=== PATIENT | male | born 1960 | race Caucasian/White ===

== ENCOUNTER 2017-12-28 11:43 | Outpatient (CLI) | payer MEDICAID ==
[~2017-12-28] VITALS: Ht 172.7 cm; Wt 141.5 kg
[2017-12-28 11:52] VITALS: BP 155/79
--- NOTE | 2017-12-28 12:38 | Diagnostic Imaging Report ---
INDICATION: Preoperative evaluation. COMPARISON: None. FINDINGS: Two views of the chest are obtained. Heart size is normal. The pulmonary vessels appear unremarkable. There is no pneumothorax, mediastinal widening or pleural fluid. Diaphragms are flattened consistent with COPD. There is some minimal atelectasis or scarring at the right lung base. The lungs are otherwise clear. There are degenerative changes in the spine. IMPRESSION: Findings suggestive of COPD with some minimal atelectasis or scarring at the right lung base. No additional abnormality is seen. Dictated by: Dictated on workstation # [id number]
[2017-12-28 12:39] LABS: BASOPHILS % (AUTO) 0 % (0-10); EOSINOPHILS # (AUTO) 0.2 10^3/uL (0.0-0.3); EOSINOPHILS % (AUTO) 2 % (0-10); HEMATOCRIT 43 % (40-54); HEMOGLOBIN 15.8 G/DL (13.3-17.7); LYMPHOCYTES % (AUTO) 22 % (12-44); MEAN CORPUSCULAR HEMOGLOBIN 32 PG (25-34); MEAN CORPUSCULAR HGB CONC 37 G/DL (32-36); MEAN CORPUSCULAR VOLUME 86 FL (80-99); MEAN PLATELET VOLUME 10.1 FL (7.4-10.4); MONOCYTES # (AUTO) 0.5 X 10^3 (0.0-1.0); MONOCYTES % (AUTO) 6 % (0-12); NEUTROPHILS # (AUTO) 6.6 X 10^3 (1.8-7.8); NEUTROPHILS % (AUTO) 70 % (42-75); PLATELET COUNT 251 10^3/uL (130-400); RED CELL DISTRIBUTION WIDTH 14.2 % (10.0-14.5); WHITE BLOOD COUNT 9.3 10^3/uL (4.3-11.0)
[2017-12-28 12:58] LABS: BUN/CREATININE RATIO 16; CALCIUM 9.7 MG/DL (8.5-10.1); CARBON DIOXIDE 26 MMOL/L (21-32); CHLORIDE 96 MMOL/L (98-107); CREATININE SERUM 0.83 MG/DL (0.60-1.30); GFR ESTIMATED > 60; GLUCOSE 155 MG/DL (70-105); POTASSIUM 2.8 MMOL/L (3.6-5.0); SODIUM 137 MMOL/L (135-145)
[2017-12-28] MEDS ORDERED: MONT10TA24 PO (15:24)
[2017-12-28] MEDS ORDERED: FURO40TA4 PO (15:24)
[2017-12-28] MEDS ORDERED: FAMO40TA6 PO (15:24)
[2017-12-28] MEDS ORDERED: METF500T4 PO (15:24)
[2017-12-28] MEDS ORDERED: LORA10TA7 PO (16:17)
[2017-12-28] MEDS ORDERED: POTA10TA10 PO (16:17)
[2017-12-28] MEDS ORDERED: VENL150C98 PO (16:17)
[2017-12-28] MEDS ORDERED: CETI10TA17 PO (16:17)
[2017-12-28] MEDS ORDERED: ALBU2.5V4 IH (16:17)
[2017-12-28] MEDS ORDERED: AMLO5TAB2 PO (16:17)
[2017-12-28] MEDS ORDERED: ATOR80TA76 PO (16:17)
[2017-12-28] MEDS ORDERED: SUVO5TAB2 PO (16:17)
[2017-12-28] MEDS ORDERED: HYDR25TA4 PO (16:17)
[2017-12-28] MEDS ORDERED: CLON1TAB3 PO ×2 (16:17)
[2017-12-28] MEDS ORDERED: IPRA4AER IH (16:17)
[2017-12-28] MEDS ORDERED: FLUT1DIS26 IH (16:17)
== END 2017-12-28 12:30 | disposition home or self-care (01) ==
LOC: PREOP 11:43
PROVIDERS: ATTEND Otolaryngology Otolaryngology/Facial Plastic Surgery
DX: Z01.810 Encounter for preprocedural cardiovascular examination (principal); Z01.811 Encounter for preprocedural respiratory examination; Z01.812 Encounter for preprocedural laboratory examination; Z11.2 Encounter for screening for other bacterial diseases; J34.2 Deviated nasal septum; J34.3 Hypertrophy of nasal turbinates; R09.81 Nasal congestion; R51 Headache
CPT/HCPCS: 36415; 71046; 80048; 83036; 85025; 87081

== ENCOUNTER 2018-01-01 07:53 | Day surgery (SDC) | payer MEDICAID ==
[~2018-01-01] VITALS: Ht 172.7 cm; Wt 141.5 kg
[~2018-01-01 07:53] MED LIST: ALBU2.5V4 IH; AMLO5TAB2 PO; ATOR80TA76 PO; CETI10TA17 PO; CLON1TAB3 PO; FAMO40TA6 PO; FLUT1DIS26 IH; FURO40TA4 PO; HYDR25TA4 PO; IPRA4AER IH; LORA10TA7 PO; METF500T4 PO; MONT10TA24 PO; POTA10TA10 PO; SUVO5TAB2 PO; VENL150C98 PO
[2018-01-01] MEDS ORDERED: LACTATED RINGERS 1,000 ML IV PRN ×2 (07:54→08:07)
--- OUTSIDE RECORDS SUMMARY | 2018-01-01 07:55 | XMS REPORT ---
Author Author CHRIS LEA [facility] Address Unknown Care Team Providers Care Metalizer Field Operation Name Role Phone CHRIS LEA Unavailable PROBLEMS Type Condition ICD9-CM Code [id number] Code Onset Dates Condition Status SNOMED Code Assessment Dental caries K02.9 Jun, Active 89942332 ALLERGIES Substance Reaction Event Type Date Status N.K.D.A. Unknown Non Drug Allergy Jun, Unknown SOCIAL HISTORY No smoking Hx information available PLAN OF CARE VITAL SIGNS Blood pressure systolic 144 mmHg 2016-06-27 Blood pressure diastolic 89 mmHg 2016-06-27 MEDICATIONS Medication Instructions Dosage Frequency Start Date End Date Duration Status Custer 5-325 MG Orally every 6 hrs 1 tablet as needed 6h Jun, Jun, 5 days Active Metformin HCl Active Amoxicillin 500 MG Orally every 8 hrs 1 tablet 8h Jun, Jun, 7 days Active RESULTS No Results PROCEDURES Procedure Date Ordered Related Diagnosis Body Site Dental no charge Jun 27, 2016 IMMUNIZATIONS No Known Immunizations
--- OUTSIDE RECORDS SUMMARY | 2018-01-01 07:55 | XMS REPORT ---
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 Unknown Non Drug Allergy Jun, Unknown SOCIAL HISTORY No smoking Hx information available PLAN OF CARE VITAL SIGNS Blood pressure systolic 136 mmHg 2016-06-18 Blood pressure diastolic 96 mmHg 2016-06-18 MEDICATIONS Medication Instructions Dosage Frequency Start Date End Date Duration Status Metformin HCl Active RESULTS No Results PROCEDURES Procedure Date Ordered Related Diagnosis Body Site LTD ORAL EVALUATION - PROBLEM FOCUS Jun 18, 2016 INTRAORL-PERIAPICAL 1 FILM [id number] Jun 18, 2016 INTRAORL-PERIAPICAL 1 FILM [id number] Jun 18, 2016 IMMUNIZATIONS No Known Immunizations
[2018-01-01] MEDS ORDERED: FAMOTIDINE 20MG/2ML IV (PEPCID) IV ONE ×2 (08:00→08:15)
[2018-01-01 08:14] VITALS: BP 144/93
[2018-01-01] MEDS ORDERED: LIDOCAINE/EPI 1%-1:200,000 (XYLOCAINE) 10 ML VIAL ONE (08:15)
[2018-01-01] MEDS ORDERED: COCAINE HCL 4% 2 ML SYR ONE (08:15)
[2018-01-01] MEDS ORDERED: PHENYLEPHRINE 0.5% NASAL SPR (NEO-SYNEPHRINE) REG ONE (08:15)
[2018-01-01] MEDS ORDERED: DEXAMETHASONE 10 MG/ML (DECADRON) 1 ML VIAL ONE (08:27)
[2018-01-01] MEDS ORDERED: MIDAZOLAM 2 MG/2 ML (VERSED) VIAL ONE (08:27)
[2018-01-01] MEDS ORDERED: proPOfol 200 MG/20 ML (DIPRIVAN) VIAL IV ONE (08:27)
[2018-01-01] MEDS ORDERED: SUCCINYLCHOLINE INJ 100 MG/5 ML SYR ONE (08:27)
[2018-01-01] MEDS ORDERED: LIDOCAINE PF 2% 5 ML (XYLOCAINE) VIAL ONE (08:27)
[2018-01-01] MEDS ORDERED: ONDANSETRON 4 MG/2 ML (SDV) Z0FRAN ONE (08:27)
[2018-01-01] MEDS ORDERED: fentaNYL INJECTION 100 MCG/2 ML AMP ONE (08:27)
[2018-01-01] MEDS ORDERED: ROCURONIUM 50 MG/5 ML (ZEMURON) VIAL IV ONE (08:29)
[2018-01-01] MEDS ORDERED: SEVOFLURANE (ULTANE) 15 ML INHAL SOLN ONE ×5 (08:29→09:59)
--- NOTE | 2018-01-01 08:35 | Progress Note-Pre Operative ---
Pre-Operative Progress Note H&P Reviewed The H&P was reviewed, patient examined and no changes noted. Date Seen by Provider: Jan 01, 2018 Time Seen by Provider: 08:00 Date H&P Reviewed: Jan 01, 2018 Time H&P Reviewed: 08:00 Pre-Operative Diagnosis: Deviated spetum, bilat hyper of inf turbs with chronic nasal congestion JAMIN MARTINEZ MD Jan 01, 2018 8:35 am
[2018-01-01] MEDS ORDERED: ALBUTEROL INHALER HFA (VENTOLIN HFA) 8 GM IH ONE ×6 (09:02→09:59)
[2018-01-01] MEDS ORDERED: D5 1/2 NS W/KCL 20 MEQ/L 1,000 ML IV SCH (09:42)
--- NOTE | 2018-01-01 09:42 | Progress Note-Post Operative ---
Post-Operative Progess Note Surgeon (s)/Associate Professor Of Church Music (s) Surgeon JAMIN MARTINEZ MD Associate Professor Of Church Music n/a Pre-Operative Diagnosis Deviated spetum, bilat hyper of inf turbs with chronic nasal congestion Post-Operative Diagnosis same Post-Op Procedure Note Date of Procedure: Jan 01, 2018 Name of Procedure Performed: Nasal Septoplasty, Bilat REd of Inf Turbs Description & Findings Description and Findings: n/a Anesthesia Type get Estimated Blood Loss minimal Packing none. Specimen(s) collected/removed nasal septum JAMIN MRATINEZ MD Jan 01, 2018 9:42 am
[2018-01-01] MEDS ORDERED: HYDROcodone/APAP 5 MG/325 MG (LORTAB) TAB PO PRN (09:45)
[2018-01-01] MEDS ORDERED: ACETAMINOPHEN 325 MG TABLET/CAPLET (TYLENOL) PO PRN (09:45)
[2018-01-01] MEDS ORDERED: PROMETHAZINE INJ 25 MG/ML (PHENERGAN) AMP IVP PRN (09:45)
[2018-01-01] MEDS ORDERED: NEOSTIGMINE (BLOXIVERZ ) 1 MG/1ML 10 ML VIAL ONE (09:51)
[2018-01-01] MEDS ORDERED: GLYCOPYRROLATE 0.2 MG/ML (ROBINUL) 2 ML VIAL ONE (09:51)
[2018-01-01] MEDS ORDERED: RT-ALBUTEROL SULF 2.5 MG/3 ML PRE-MIX VIAL ONE (09:53)
[2018-01-01] MEDS ORDERED: RT-ALBUTEROL SULF 2.5 MG/3 ML PRE-MIX VIAL INH ONE (10:00)
[2018-01-01] MEDS: morphine INJ 10 MG/ML 1ML (SYR OR VIAL) IVP PRN ×3 (10:08→10:17)
[2018-01-01 10:55] VITALS: BP 124/76
[2018-01-01] MEDS ORDERED: HYDR-3812 PO (11:03)
[2018-01-01] MEDS ORDERED: AMOX-355 PO (11:03)
--- NOTE | 2018-01-01 11:03 | Anesthesia-General Post-Op ---
General Patient Condition Mental Status/LOC: Same as Preop Cardiovascular: Satisfactory Nausea/Vomiting: Absent Respiratory: Satisfactory Pain: Controlled Complications: Absent Post Op Complications Complications None Follow Up Care/Instructions Patient Instructions None needed. Anesthesia/Patient Condition Patient Condition Patient is doing well, no complaints, stable vital signs, no apparent adverse anesthesia problems. No complications reported per nursing. D/C home per [facility] Criteria: No COLTON HEARN CRNA Jan 01, 2018 11:02
[2018-01-01 11:25] VITALS: BP 129/78
[2018-01-01 11:43] VITALS: BP 129/78
== END 2018-01-01 11:44 | disposition home or self-care (01) ==
LOC: SDC 07:53
PROVIDERS: ATTEND Otolaryngology Otolaryngology/Facial Plastic Surgery
DX: J34.2 Deviated nasal septum (principal); J34.3 Hypertrophy of nasal turbinates; E11.43 Type 2 diabetes mellitus with diabetic autonomic (poly)neuropathy; I10 Essential (primary) hypertension; J44.9 Chronic obstructive pulmonary disease, unspecified; J45.909 Unspecified asthma, uncomplicated; G47.33 Obstructive sleep apnea (adult) (pediatric); F20.9 Schizophrenia, unspecified; E66.01 Morbid (severe) obesity due to excess calories; Z68.42 Body mass index [BMI] 45.0-49.9, adult; Z79.84 Long term (current) use of oral hypoglycemic drugs; Z79.899 Other long term (current) drug therapy
CPT/HCPCS: 36415; 82962; 84132

== ENCOUNTER 2023-06-08 16:59 | Emergency (ER) | payer MEDICAID ==
[~2023-06-08 16:59] MED LIST changes: +ACHD5005 PO; +AMLO-250 PO; -AMLO5TAB2 PO; +AMOX-355 PO; +CLON1TAB13 PO; -CLON1TAB3 PO; +METF-397 PO; -METF500T4 PO; +MONT-40 PO; -MONT10TA24 PO
--- NOTE | 2023-06-08 17:14 | ED Neurological Problem ---
General Stated Complaint: DYSTONIC REACTION Source: patient, EMS Exam Limitations: no limitations History of Present Illness Date Seen by Provider: Jun 08, 2023 Time Seen by Provider: 17:00 Initial Comments 62yoM with PMH most notable for bipolar disorder on Effexor coming in via EMS due to concerns for a dystonic reaction. He typically is on the Effexor, took that today, and got mixed up with some old medicine he had laying around. He did up taking 120 mg of Latuda as well. That was at 2 PM. Around 4 PM he noticed that his jaw was open, he was having difficulty shutting it, his tongue was protruding out. He called EMS, they gave him 50 mg of IM Benadryl at 4:30 PM. He started improving roughly 15 minutes after that. He states he is at his baseline now. He is otherwise denying any other acute complaints. Allergies and Home Medications Allergies Coded Allergies: ziprasidone (Verified Adverse Reaction, Unknown, DIARRHEA, 12/28/17) Patient Home Medication List Home Medication List Reviewed: Yes Albuterol Sulfate (Albuterol Sulfate) 2.5 Mg/3 Ml Vial.neb, 2.5 MG IH Q4H PRN for SHORTNESS OF BREATH, (Reported) Entered as Reported by: KIRSTY BOLAND on 12/28/17 161 Albuterol/Ipratropium (Combivent Respimat Inhal [place]) 4 Gm Aero, 2 PUFF IH Q4H PRN for WHEEZING, (Reported) Entered as Reported by: KIRSTY BOLAND on 12/28/17 161 Amlodipine Besylate (Amlodipine Besylate) 5 Mg Tablet, 5 MG PO DAILY, (Reported) Entered as Reported by: KIRSTY BOLAND on 12/28/17 161 Amoxicillin/Potassium Clav (Augmentin 500-125 Tablet) 1 Each Tablet, 1 EACH PO BID Prescribed by: LILIANE ABREU on 01/01/18 1103 Atorvastatin Calcium (Atorvastatin Calcium) 80 Mg Tablet, 80 MG PO HS, (Reported) Entered as Reported by: KIRSTY BOLAND on 12/28/17 161 Cetirizine HCl (Cetirizine HCl) 10 Mg Tablet, 10 MG PO DAILY, (Reported) Entered as Reported by: KIRSTY BOLAND on 12/28/17 1617 Clonazepam (Clonazepam) 1 Mg Tablet, 1 MG PO QID, (Reported) Entered as Reported by: KIRSTY BOLAND on 12/28/17 161 Clonazepam (Clonazepam) 1 Mg Tablet, 0.5 MG PO Q4H PRN for ANXIETY, (Reported) Entered as Reported by: KIRSTY BOLAND on 12/28/17 161 Famotidine (Famotidine) 40 Mg Tablet, 40 MG PO BID, (Reported) Entered as Reported by: KIRSTY BOLAND on 12/28/17 152 Fluticasone/Salmeterol (Advair 250-50 Diskus) 1 Each Blst.w.dev, 2 PUFF IH DAILY, (Reported) Entered as Reported by: KIRSTY BOLAND on 12/28/171616 Furosemide (Furosemide) 40 Mg Tablet, 40 MG PO BID, (Reported) Entered as Reported by: KIRSTY BOLAND on 12/28/17 152 Hydrochlorothiazide (Hydrochlorothiazide) 25 Mg Tablet, 25 MG PO DAILY, (Reported) Entered as Reported by: KIRSTY BOLAND on 12/28/171616 Hydrocodone Bit/Acetaminophen (Lortab 5 Mg Tablet) 1 Each Tablet, 1 EACH PO Q4H Prescribed by: LILIANE ABREU on 01/01/18 110 Loratadine (Loratadine) 10 Mg Tablet, 10 MG PO DAILY, (Reported) Entered as Reported by: KIRSTY BOLAND on 12/28/17 161 Metformin HCl (Metformin HCl) 500 Mg Tablet, 500 MG PO BID WITH MEALS, (Reported) Entered as Reported by: KIRSTY BOLAND on 12/28/17 152 Montelukast Sodium (Montelukast Sodium) 10 Mg Tablet, 10 MG PO HS, (Reported) Entered as Reported by: KIRSTY BOLAND on 12/28/17 152 Potassium Chloride (Potassium Chloride) 10 Meq Tablet.er, 20 MEQ PO BID, (Reported) Entered as Reported by: KIRSTY BOLAND on 12/28/17 161 Suvorexant (Belsomra) 5 Mg Tablet, 5 MG PO HS, (Reported) Entered as Reported by: KIRSTY BOLAND on 12/28/17 1617 Venlafaxine HCl (Venlafaxine HCl ER) 150 Mg Cap.er.24h, 300 MG PO DAILY, (Reported) Entered as Reported by: KIRSTY BOLAND on 12/28/17 1617 Review of Systems Review of Systems Constitutional: No fever Eyes: No Symptoms Reported Ears, Nose, Mouth, Throat: see HPI Respiratory: no symptoms reported Cardiovascular: no symptoms reported Gastrointestinal: no symptoms reported Genitourinary: no symptoms reported Musculoskeletal: no symptoms reported Skin: no symptoms reported Psychiatric/Neurological: No Symptoms Reported Past [id number]-[id number]-Vbmfwb Hx Patient Social History Substance use?: No Seasonal Allergies Seasonal Allergies: Yes Past Medical History Appendectomy Asthma, Sleep Apnea, COPD Currently Using CPAP: Yes Hypertension Gastroesophageal Reflux, Irritable Bowel Fractures Schizophrenia Physical Exam Vital Signs Capillary Refill : Height, Weight, BMI Height: 5'8.00" Weight: 312lbs. 0.0oz. 141.539625ga; 47.4 BMI Method: General Appearance: WD/WN, no apparent distress HEENT: PERRL/EOMI, normal ENT inspection, pharynx normal Neck: non-tender, full range of motion, supple, normal inspection Respiratory: chest non-tender, lungs clear, normal breath sounds, no respiratory distress, no accessory muscle use Cardiovascular: regular rate, rhythm Gastrointestinal: normal bowel sounds, non tender, soft; No distended, No guarding, No rebound Back: normal inspection, no CVA tenderness, no vertebral tenderness Extremities: normal range of motion, non-tender, normal inspection, no calf tenderness, normal capillary refill Neurologic/Psychiatric: 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 tested, no motor/sensory deficits, alert, normal mood/affect, oriented x 3 Crainal Nerves: normal hearing, normal speech, PERRL, other (Normal visual fi elds and visual acuity) Coordination/Gait: normal finger to nose, normal gait Motor/Sensory: no motor deficit, no sensory deficit Skin: normal color, warm/dry Stroke Onset of Symptoms Date of Onset of Symptoms: Jun 08, 2023 Time of Symptom Onset: 16:00 Onset of Symptoms: Yes NIH Stroke Scale Assessment Select: Initial Level of Consciousness: 0=Alert (0), Level of Consciousness- Questions: 0=Answers both month/age (0), LOC Commands: 0=Performs both tasks (0), Gaze: Normal (0), Visual Gloria: 0=No visual loss (0), Facial Movement (Facial Paresis): 0=Normal symmetrical mnt (0), Motor Function-Arms Right: 0=No drift (0), Motor Function-Arms Left: 0=No drift (0), Motor Function-Legs Right: 0=No drift (0), Motor Function-Legs Left: 0=No drift (0), Limb Ataxia: 0=Absent (0), Sensory: 0=Normal:no loss (0), Best Language: 0=No aphasia (0), Dysarthria: 0=Normal (0), Extinction & Inattention: 0=No abnormality (0), Total: 0 Stroke Thrombolytic Exclusion TPA Contraindication: Yes IV - TPa Received IV - TPa Procedure Performed?: No Progress/Results/Core Measures Results/Orders My Orders Orders - FRANK MCGUIRE MD Accucheck Stat ONCE (06/08/23 17:08) Progress Progress Note : Progress Note 62-year-old male with above history coming in due to concerns for dystonic reaction with trismus and tongue protrusion. ABCs were intact and vitals were stable on presentation. His neuro exam is completely normal. He received Benadryl from EMS via an IM injection which extend within several minutes. We continue to monitor him with no recurrence of symptoms. Will recommend he take Benadryl again in the morning. This was not a toxic dose of Latuda, and we do not need to worry about an overdose. I believe he is otherwise stable for discharge with outpatient follow-up. He was sent home with strict return precautions Departure Impression Primary Impression: Dystonic drug reaction Disposition: 01 HOME, SELF-CARE Condition: Stable Departure-Patient Inst. Decision time for Depature: 17:35 Referrals: NO,LOCAL PHYSICIAN (PCP/Family) Primary Care Physician Patient Instructions: Dystonia Add. Discharge Instructions: This was likely caused from the Latuda mixed with the Effexor. We recommend taking 1 more Benadryl tomorrow morning to help prevent this from happening if there is still any in your system. Please follow back up with your regular doctor as needed. Please throw away any medications that you are no longer taking. Work/School Note: Work Release Form Date Seen in the Emergency Department: Jun 08, 2023 Return to Work: Jun 09, 2023 Restrictions: No Restrictions FRANK MCGUIRE MD Jun 08, 2023 17:14
[2023-06-08 17:30] VITALS: BP 125/55
== END 2023-06-08 17:33 | disposition home or self-care (01) ==
LOC: EDUNIT# 16:59 → ER FS 16:59
DX: T50.991A Poisoning by other drugs, medicaments and biological substances, accidental (unintentional), initial encounter (principal); G47.30 Sleep apnea, unspecified; F31.9 Bipolar disorder, unspecified; Z99.89 Dependence on other enabling machines and devices; Z79.899 Other long term (current) drug therapy
CPT/HCPCS: 82947